=== PATIENT | male | born 1990 | race Caucasian/White ===

== ENCOUNTER 2018-01-02 12:31 | Emergency (ER) | payer OTHER ==
[2018-01-02] MEDS: DEXAMETHASONE 4 MG TAB PO (14:29)
[2018-01-02] MEDS: IBUPROFEN 600 MG TAB PO (14:29)
== END 2018-01-02 15:34 | disposition home or self-care (01) ==
LOC: FTE 12:31
DX: J02.9 Acute pharyngitis, unspecified (principal)
CPT/HCPCS: 87880; 99283

== ENCOUNTER 2018-01-04 04:51 | Emergency (ER) | payer OTHER ==
[2018-01-04] MEDS: SOD CHLORIDE 0.9% 1,000 ML IV (06:40)
[2018-01-04] MEDS: KETOROLAC 30 MG INJ IV (06:40)
[2018-01-04] MEDS: DEXAMETHASONE 10 MG/ML 1 ML INJ IV (06:40)
[2018-01-04] MEDS: CLINDAMYCIN 600 MG/D5W (PMX) 50 ML IVPB (06:44)
== END 2018-01-04 08:03 | disposition home or self-care (01) ==
LOC: FTE 04:51
DX: J36 Peritonsillar abscess (principal)
CPT/HCPCS: 96365; 96375; 99284-25

== ENCOUNTER 2018-01-05 21:56 | Emergency (ER) | payer OTHER ==
[2018-01-05 23:06] LABS: ADD MAN DIFF? NO
[2018-01-05 23:07] LABS: WHITE BLOOD COUNT 12.8 10^3/ul (4.8-10.8)
[2018-01-05 23:07] LABS: BASOPHILS % 0.1 % (0.0-2.0); EOSINOPHILS % 0.2 % (0.0-7.0); HEMATOCRIT 41.5 % (42.0-52.0); HEMOGLOBIN 13.6 g/dl (14.0-18.0); LYMPHOCYTES # 2.4 10^3/ul (0.8-2.9); LYMPHOCYTES % 18.7 % (15.0-51.0); MEAN CORPUSCULAR HGB CONC 32.8 g/dl (32.0-37.0); MEAN CORPUSCULAR VOLUME 91.6 fl (82.0-101.0); MONOCYTE # 1.2 10^3/ul (0.3-0.9); MONOCYTES % 9.6 % (0.0-11.0); NEUTROPHIL # 9.1 10^3/ul (1.6-7.5); NEUTROPHILS % 70.9 % (39.0-77.0); PLATELET COUNT 231 10^3/UL (140-415); RED BLOOD COUNT 4.53 10^6/ul (4.70-6.10); RED CELL DISTRIBUTION WIDTH 12.8 % (11.5-14.5)
[2018-01-05] MEDS: KETOROLAC 30 MG INJ IV (23:22)
[2018-01-05 23:28] LABS: ALANINE AMINOTRANSFERASE 40 IU/L (13-69); ALBUMIN 4.3 g/dl (3.3-4.9); ALBUMIN/GLOBULIN RATIO 1.38; ALKALINE PHOSPHATASE 62 IU/L (42-121); ANION GAP 12 (8-16); ASPARTATE AMINO TRANSFERASE 39 IU/L (15-46); BILIRUBIN,INDIRECT 0.5 mg/dl (0-1.1); BILIRUBIN,TOTAL 0.5 mg/dl (0.2-1.3); BLOOD UREA NITROGEN 17 mg/dl (7-20); CALCIUM 9.2 mg/dl (8.4-10.2); CARBON DIOXIDE 32 mmol/L (21-31); CHLORIDE 102 mmol/L (97-110); CREATININE 0.84 mg/dl (0.61-1.24); GLUCOSE 101 mg/dl (70-220); POTASSIUM 4.3 mmol/L (3.5-5.1); SODIUM 142 mmol/L (135-144); TOTAL PROTEIN 7.4 g/dl (6.1-8.1)
[2018-01-06] MEDS: IOHEXOL 300MG/ML 150 ML BTL (00:08)
[2018-01-06] MEDS: SOD CHLORIDE 0.9% 100 ML (00:08)
[2018-01-06] MEDS: DEXAMETHASONE 10 MG/ML 1 ML INJ IV (02:12)
[2018-01-06] MEDS: morphine 4 MG/ML VIAL IV (02:12)
[2018-01-06] MEDS ORDERED: LIDOCAINE 1%/EPI (MDV) 50 ML INJ INJ (03:00)
[2018-01-06] MEDS ORDERED: LIDOCAINE 1%/EPI (1:100,000) (MDV) 20 ML INJ (03:15)
== END 2018-01-06 06:56 | disposition home or self-care (01) ==
LOC: FTE 21:56 → E/R 01-06 06:56
DX: J36 Peritonsillar abscess (principal)
CPT/HCPCS: 42700; 70491; 80053; 85025; 96374; 96375; 99285-25